=== PATIENT | male | born 1935 | race Caucasian/White ===

== ENCOUNTER → 2016-02-25 | Outpatient (CLI) | payer BC ==
[~2016-02-25] MED LIST: ASPCH81 PO; LOSA50TA6 PO; METO1TAB69 PO; MULT-506 PO; PRLSR20 PO; SIMV20TA2 PO
[2016-02-25 09:30] LABS: BASO % 0.6 %; BASO ABS # 0.03 K/uL (0-0.2); COMPLETE YES; EOS % 3.8 %; HEMATOCRIT 40.3 % (42-52); IG% 0.2 %; LYMPH % 29.5 %; LYMPH ABS # 1.56 K/uL (1.2-3.4); MEAN CELL VOLUME 84.7 fL (80-100); MEAN CORPUSCULAR HEMOGLOBIN 28.2 pg (25-34); MEAN CORPUSCULAR HGB CONC 33.3 g/dl (32-36); MEAN PLATELET VOLUME 10.3 fL (7.4-10.4); NEUT % 55.9 %; PLATELET COUNT 152 K/uL (130-400); RED BLOOD COUNT 4.76 M/uL (4.7-6.1); WHITE BLOOD COUNT 5.28 K/uL (4.8-10.8)
[2016-02-25 09:52] LABS: ALT/SGPT 18 U/L (12-78); AST/SGOT 17 U/L (15-37); BLOOD UREA NITROGEN 26 mg/dl (7-18); BUN/CREATININE RATIO 18.3 (10-20); CALCIUM 8.6 mg/dl (8.5-10.1); CARBON DIOXIDE 29 mmol/L (21-32); CHLORIDE 106 mmol/L (98-107); GLUCOSE 102 mg/dl (70-99); POTASSIUM 4.4 mmol/L (3.5-5.1); SODIUM 141 mmol/L (136-145); TRIGLYCERIDES 60 mg/dl (0-150); VERY LOW DENSITY LIPOPROT CALC 12 mg/dl
[2016-02-25 09:55] LABS: CHOLESTEROL 148 mg/dl (0-200); CHOLESTEROL/HDL RATIO 2.6; FERRITIN 90.3 ng/ml (8.0-388.0); HDL CHOLESTEROL 58 mg/dl; LDL CHOLESTEROL CALCULATED 78 mg/dl
== END | disposition home or self-care (01) ==
LOC: C.LAB1850 07:13
PROVIDERS: ATTEND Internal Medicine
DX: F52.8 Other sexual dysfunction not due to a substance or known physiological condition (principal); I10 Essential (primary) hypertension; I25.10 Atherosclerotic heart disease of native coronary artery without angina pectoris; Z12.5 Encounter for screening for malignant neoplasm of prostate; D64.9 Anemia, unspecified; E78.5 Hyperlipidemia, unspecified

== ENCOUNTER → 2017-02-23 | Outpatient (CLI) | payer BC ==
[~2017-02-23] MED LIST changes: +METO100T44 PO; -METO1TAB69 PO
[2017-02-23 09:58] LABS: BASO % 0.3 %; BASO ABS # 0.02 K/uL (0-0.2); EOS % 2.4 %; EOS ABS # 0.16 K/uL (0-0.5); HEMATOCRIT 40.7 % (42-52); HEMOGLOBIN 13.5 g/dL (14.0-18.0); IG# 0.02 K/uL (0.00-0.02); LYMPH % 27.3 %; LYMPH ABS # 1.79 K/uL (1.2-3.4); MEAN CELL VOLUME 84.6 fL (80-100); MEAN CORPUSCULAR HEMOGLOBIN 28.1 pg (25-34); MEAN CORPUSCULAR HGB CONC 33.2 g/dl (32-36); MEAN PLATELET VOLUME 10.5 fL (7.4-10.4); MONO % 10.5 %; MONO ABS # 0.69 K/uL (0.11-0.59); NEUT % 59.2 %; NEUT ABS # 3.87 K/uL (1.4-6.5); PLATELET COUNT 211 K/uL (130-400); RED CELL DISTRIBUTION WIDTH CV 12.8 % (11.5-14.5); RED CELL DISTRIBUTION WIDTH SD 38.9 fL (36.4-46.3); WHITE BLOOD COUNT 6.55 K/uL (4.8-10.8)
[2017-02-23 10:05] LABS: ALBUMIN 3.5 gm/dl (3.4-5.0); ALT/SGPT 20 U/L (12-78); AST/SGOT 19 U/L (15-37); BLOOD UREA NITROGEN 28 mg/dl (7-18); CALCIUM 8.7 mg/dl (8.5-10.1); CARBON DIOXIDE 29 mmol/L (21-32); CHOLESTEROL 133 mg/dl (0-200); CREATININE 1.48 mg/dl (0.60-1.40); GLUCOSE 95 mg/dl (70-99); POTASSIUM 4.4 mmol/L (3.5-5.1); SODIUM 139 mmol/L (136-145)
[2017-02-23 10:08] LABS: ALKALINE PHOSPHATASE 88 U/L (45-117); LDL CHOLESTEROL CALCULATED 69 mg/dl
== END | disposition home or self-care (01) ==
LOC: C.LAB1850 07:35
PROVIDERS: ATTEND Physician Assistant
DX: E78.5 Hyperlipidemia, unspecified (principal)

== ENCOUNTER 2024-04-07 17:22 | Inpatient (IN) ==
--- NOTE | 2024-04-07 18:25 | Emergency Department Note ---
Impression & Plan Acute dyspnea, Acute exacerbation of CHF (congestive heart failure), Non-ST elevation CT (NSTEMI), Elevated brain natriuretic peptide (BNP) level ED Provider Note HISTORY OF PRESENT ILLNESS: Patient is an 88-year-old male presenting with general malaise. Patient reports that he has been feeling generally unwell over the last few days. He states that he was diagnosed with recurrent pneumonia a few weeks ago and finished a course of antibiotics 1 week ago. He is complaining of fatigue and shortness of breath with exertion. He states that today he went to his weekly tennis game and was very short of breath, so he went to be evaluated by his doctor. He was sent over to the emergency department for further evaluation. He denies any fevers or cough. Denies any chest pain. Denies any nausea or vomiting or abdominal pain. Patient reports that he was prescribed steroids with his antibiotics, but he never took them. Patient denies any chest pain. Denies any history of cardiac stents. Denies any DVT or PE history. He is not on any anticoagulation other than a baby aspirin. ROS: as above PHYSICAL EXAM: Constitutional: Patient appears in no acute distress. HENT: Head: Normocephalic and atraumatic. Eyes: EOMI, PERRL Mouth/Throat: Mucous membranes moist. Neck: Trachea midline. Neck supple. Cardiovascular: Irregular rhythm. No murmurs, rubs or gallops. Intact distal pulses. Pulmonary/Chest: No respiratory distress. Breath sounds clear and equal bilaterally. No wheezes or rales. Abdominal: Abdomen soft, no tenderness, rebound or guarding. Musculoskeletal: No edema, tenderness or deformity noted. Skin: Warm and dry. No rash, erythema, pallor or cyanosis Psychiatric: Appropriate mood and affect for situation. Neurological: Alert and keenly responsive. CN II-XII grossly intact, moving all extremities equally and fully. MDM: - Vitals signs showed hypertension - History obtained via patient. History as above. - Chronic conditions affecting care: CAD; HTN - Differential diagnoses include, but are not limited to: Congestive heart failure; acute coronary syndrome; COPD/asthma exacerbation; pulmonary edema; pulmonary embolism; pneumonia; pneumothorax; viral syndrome - Order placed for continuous cardiac monitoring. At this time, monitor showed rate of 65 bpm with irregular rhythm, per my interpretation. - External medical records reviewed. Primary care visit note from today was reviewed. Patient was diagnosed with pneumonia on chest x-ray on 03/17/2024. He was treated with a course of amoxicillin and azithromycin that he finished last week. Per their documentation, he was ordered a chest x-ray and was going to be called with for the results. - EKG image interpreted by myself showed atrial fibrillation. Rate 80 bpm. QT 412. Noted to have a left bundle branch block, that has not appeared on previous EKGs - Laboratory workup interpreted by myself showed normal WBC; normal PT/INR; stable electrolytes; elevated creatinine (Cr 1.47); elevated troponin (45.4); elevated BNP (432) - VBG normal - Viral respiratory panel negative - CXR image reviewed by myself showed pulmonary vascular congestion, per my interpretation. Radiology on the ER chest x-ray reports superimposed pneumonia cannot be excluded. Patient's chest x-ray from earlier today showed CHF with left lower lobe pneumonia. - Given patient's normal WBC, do not think this is pneumonia that is noted. His symptoms are likely secondary to CHF exacerbation. Given patient's elevated creatinine, 20 mg of IV Lasix was ordered. - Repeat EKG image obtained at 20:05 and interpreted by myself showed atrial fibrillation. Rate 63 bpm. QT 438. Noted to have persistent left bundle branch block - Discussion was had with case maker about patient's case and need for admission - Hospitalist, Dr. Everett, consulted for admission - Patient admitted to [facility] service for further evaluation and management. 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 Acid reflux (Acute) Anemia (Acute) CAD (coronary artery disease) (Acute) Asymptomatic stenosis of right carotid artery (Acute) Dyslipidemia (Acute) Hypertension (Acute) Medical History Erectile dysfunction Insomnia SNHL (sensorineural hearing loss) Surgical History History of rotator cuff surgery History of knee replacement History of cataract surgery Left eye 03/08/2008; Dr Leandro Sorto History of appendectomy Family History Family/Other Diabetes Father Cardiac disorder Family history of deafness and hearing loss Myocardial infarction Denies family history of Ovarian cancer Prostate cancer Crohn's disease Breast cancer Colorectal cancer Social History Smoking Status: Never smoker Second Hand Exposure: No; Do You Dip or Chew Tobacco: No; Hx Alcohol Use: No (Special occassions) Hx Substance Use: No Preferred Language: Welsh Visual Impairment: No Limitations Hearing Ability: Use of Hearing Aid marital status: Current Living Situation: Spouse current occupational status: retired Feels Safe at Home: Yes Diet: regular Dental Care, Regularly: Yes Physical Activity Frequency: 3-4 Times per Week Seatbelt Use: always Sunscreen Use: Yes Allergies Allergies Allergy/AdvReac Type Severity Reaction Status Date / Time morphine Allergy Unknown UNSURE Verified 04/07/24 13:46 Home Meds Previous Rx's Medication Instructions Recorded atorvastatin 20 mg tablet 20 mg PO DAILY #90 tabs 07/22/23 aspirin 81 mg tablet,delayed 81 mg PO Q2D #45 tabs 12/22/23 release losartan 50 mg tablet 50 mg PO DAILY #30 tabs 04/05/24 Results & Data (ED) Vital Signs Vital Signs - 24 hr 04/07/24 17:34 04/07/24 18:02 04/07/24 18:30 Temperature 36.2 C L Temperature Source Temporal Artery Scan Pulse Rate 77 68 Pulse Rate [Finger] 64 Respiratory Rate 18 18 Respiratory Effort / Characteristics Non-Labored Respiratory Depth Normal Respiratory Pattern Regular Blood Pressure 181/96 H Blood Pressure [Right Arm] 162/96 H Blood Pressure Mean 124 Blood Pressure Mean [Right Arm] 118 Blood Pressure Position [Right Arm] Pulse Oximetry 97 96 Oxygen Delivery Method Room Air Room Air Sepsis Recent Fever Within 48 Hours No Sepsis New/Unexplained Change in Mental Status N/A Sepsis Action Taken by Nursing No Action Required 04/07/24 19:46 04/07/24 19:46 04/07/24 19:53 Temperature Temperature Source Pulse Rate Pulse Rate [Finger] 70 Respiratory Rate 20 Respiratory Effort / Characteristics Non-Labored Spontaneous Respiratory Depth Normal Respiratory Pattern Regular Blood Pressure Blood Pressure [Right Arm] 195/89 H Blood Pressure Mean Blood Pressure Mean [Right Arm] 124 Blood Pressure Position [Right Arm] Sitting Pulse Oximetry 98 98 Oxygen Delivery Method Room Air Room Air Sepsis Recent Fever Within 48 Hours Sepsis New/Unexplained Change in Mental Status Sepsis Action Taken by Nursing Laboratory Data 04/07/24 17:52 04/07/24 17:52 Lab Results 04/07/24 04/07/24 04/07/24 Range/Units 17:52 17:53 18:41 WBC 6.37 (4.8-10.8) K/ul RBC 4.46 L (4.70-6.10) M/uL Hgb 12.4 L (14.0-18.0) g/dl Hct 39.0 L (42.0-52.0) % MCV 87.4 (80.0-100.0) fL MCH 27.8 (25.0-34.0) pg MCHC 31.8 L (32.0-36.0) g/dL RDW Std Deviation 42.0 (36.4-46.3) fL RDW Coeff of Anuj 13.2 (11.5-14.5) % Plt Count 165 (130-400) K/uL MPV 10.8 (9.4-12.4) fL Immature Gran % (Auto) 0.3 % Neut % (Auto) 66.5 % Lymph % (Auto) 19.6 % [place] % (Auto) 9.9 % Eos % (Auto) 2.8 % Baso % (Auto) 0.9 % Neut # (Auto) 4.23 (1.40-6.50) K/uL Lymph # (Auto) 1.25 (1.20-3.40) K/uL [place] # (Auto) 0.63 H (0.11-0.59) K/uL Eos # (Auto) 0.18 (0.00-0.50) K/uL Baso # (Auto) 0.06 (0.00-0.20) K/uL Immature Gran # (Auto) 0.02 (0.01-0.20) K/uL PT 11.1 (9.0-12.0) Seconds INR 1.0 (0.9-1.1) VBG pH 7.36 (7.36-7.41) VBG pCO2 46 (38-50) mmHg VBG pO2 29 mmHg VBG HCO3 26 mmol/L VBG O2 Saturation < 60.0 % VBG Base Excess 0.1 mEq/L Sodium 140 (136-145) mmol/L Potassium 4.1 (3.5-5.1) mmol/L Chloride 108 H (98-107) mmol/L Carbon Dioxide 26 (21-32) mmol/L Anion Gap 6 (3-11) BUN 35 H (6-23) mg/dl Creatinine 1.47 H (0.6-1.4) mg/dl Est Cr Clr Drug Dosing 35.9 ml/min eGFR 45.59 BUN/Creatinine Ratio 23.8 H (10-20) Glucose 143 H (70-99(Fasting)) mg/dl Calcium 9.0 (8.6-10.3) mg/dl Magnesium 1.9 (1.7-2.4) mg/dl Total Bilirubin 0.6 (0.2-1.0) mg/dl AST 40 H (13-39) U/L ALT 26 (7-52) U/L Alkaline Phosphatase 103 (34-104) U/L Troponin I High Sens 45.5 H (0-20) pg/ml B-Natriuretic Peptide 432 H (0-100) pg/ml Total Protein 7.0 (6.0-8.3) gm/dl Albumin 4.2 (3.4-5.0) gm/dl Globulin 2.8 (2.5-4.0) gm/dl Albumin/Globulin Ratio 1.5 (0.9-2) Procalcitonin < 0.02 (0-0.5) ng/ml Adenovirus (PCR) Not Detected (NotDetected) B. pertussis DNA (PCR) Not Detected (NotDetected) B.parapertussis DNA PCR Not Detected (NotDetected) C. pneumoniae DNA (PCR) Not Detected (NotDetected) Coronavirus OC43 (PCR) Not Detected (NotDetected) Coronavirus HKU1 (PCR) Not Detected (NotDetected) Coronavirus 229E (PCR) Not Detected (NotDetected) SARS-CoV-2 (PCR) Not Detected (NotDetected) Coronavirus NL63 (PCR) Not Detected (NotDetected) Human Metapneumovir PCR Not Detected (NotDetected) Influenza Type A (PCR) Not Detected (NotDetected) Influenza Type B (PCR) Not Detected (NotDetected) M. pneumoniae (PCR) Not Detected (NotDetected) Parainfluenza 1 (PCR) Not Detected (NotDetected) Parainfluenza 2 (PCR) Not Detected (NotDetected) Parainfluenza 3 (PCR) Not Detected (NotDetected) Parainfluenza 4 (PCR) Not Detected (NotDetected) RSV (PCR) Not Detected (NotDetected) Entero/Rhino (PCR) Not Detected (NotDetected) Administered Medications Discontinued Medications Furosemide (Furosemide Inj 20 Mg/2 Ml Vial) 20 mg IV ONE ONE Stop: 04/07/24 19:31 Last Admin: 04/07/24 19:51 Dose: 20 mg Documented By: JR Imaging Data Radiologist's Impression: Chest X-Ray 04/07/24 17:45 EXAM: Portable AP chest radiograph TECHNIQUE: AP portable radiograph of the chest was obtained. INDICATION: Shortness of breath Comparison: None available. FINDINGS: LINES and TUBES: None CARDIOVASCULAR: Cardiac silhouette is enlarged in size. LUNGS/PLEURA: Mild to moderate pulmonary vascular congestion. Left basilar density obscuring the hemidiaphragm likely due to moderate-sized pleural fluid and associated atelectasis. Small right-sided pleural fluid is also suspected. Airspace disease is not excluded in the lung bases. No discernible pneumothorax. OSSEOUS/OTHER: No displaced acute osseous process identified. IMPRESSION: Congestive changes of the cardiovascular system as above. Superimposed airspace disease should be clinically excluded. Electronically signed by Patrick Madden 04-07-2024 6:28 PM Discharge Plan Visit Data Chief Complaint: Respiratory Problems Stated Complaint: DOC. MARICRUZ LORENZANA, [place] ED Provider: Jeni Bess Discharge Problem: Acute dyspnea, Acute exacerbation of CHF (congestive heart failure), Non-ST elevation CT (NSTEMI), Elevated brain natriuretic peptide (BNP) level Forms Stand Alone Forms: My [facility] Prescriptions Prescriptions: No Action atorvastatin 20 mg tablet 20 mg PO DAILY Qty: 90 3RF losartan 50 mg tablet 50 mg PO DAILY Qty: 30 1RF aspirin 81 mg tablet,delayed release (DR/EC) 81 mg PO Q2D Qty: 45 2RF Referrals Referrals: Giovany Negron MD [Primary Care Provider] -
--- NOTE | 2024-04-07 18:29 | XRay Report ---
EXAM: Portable AP chest radiograph TECHNIQUE: AP portable radiograph of the chest was obtained. INDICATION: Shortness of breath Comparison: None available. FINDINGS: LINES and TUBES: None CARDIOVASCULAR: Cardiac silhouette is enlarged in size. LUNGS/PLEURA: Mild to moderate pulmonary vascular congestion. Left basilar density obscuring the hemidiaphragm likely due to moderate-sized pleural fluid and associated atelectasis. Small right-sided pleural fluid is also suspected. Airspace disease is not excluded in the lung bases. No discernible pneumothorax. OSSEOUS/OTHER: No displaced acute osseous process identified. IMPRESSION: Congestive changes of the cardiovascular system as above. Superimposed airspace disease should be clinically excluded. Electronically signed by Patrick Madden 04-07-2024 6:28 PM
[2024-04-07 18:35] LABS: Basophils # (auto) 0.06 K/uL (0.00-0.20); Basophils % (auto) 0.9 %; Eosinophils # (auto) 0.18 K/uL (0.00-0.50); Eosinophils % (auto) 2.8 %; Hemoglobin 12.4 g/dl (14.0-18.0); Immature Granulocytes # (auto) 0.02 K/uL (0.01-0.20); Immature Granulocytes % (auto) 0.3 %; Lymphocytes # (auto) 1.25 K/uL (1.20-3.40); Lymphocytes % (auto) 19.6 %; Mean Corpuscular Hemoglobin 27.8 pg (25.0-34.0); Mean Corpuscular Hgb Conc 31.8 g/dL (32.0-36.0); Mean Corpuscular Volume 87.4 fL (80.0-100.0); Mean Platelet Volume 10.8 fL (9.4-12.4); Monocytes # (auto) 0.63 K/uL (0.11-0.59); Monocytes % (auto) 9.9 %; Neutrophils # (auto) 4.23 K/uL (1.40-6.50); Neutrophils % (auto) 66.5 %; Platelet Count 165 K/uL (130-400); RDW Coefficient of Variation 13.2 % (11.5-14.5); Red Blood Count 4.46 M/uL (4.70-6.10); White Blood Count 6.37 K/ul (4.8-10.8)
[2024-04-07 18:49] LABS: Albumin Globulin Ratio 1.5 (0.9-2); Albumin Level 4.2 gm/dl (3.4-5.0); BUN Creatinine Ratio 23.8 (10-20); Bilirubin,Total 0.6 mg/dl (0.2-1.0); Creatinine Clr Calc Pharmacy 35.9 ml/min; Globulin 2.8 gm/dl (2.5-4.0); Magnesium 1.9 mg/dl (1.7-2.4); Potassium 4.1 mmol/L (3.5-5.1)
[2024-04-07 18:52] LABS: Base Excess VBG 0.1 mEq/L; HCO3 VBG 26 mmol/L; Oxygen Saturation VBG < 60.0 %; PCO2 VBG 46 mmHg (38-50); PO2 VBG 29 mmHg; pH VBG 7.36 (7.36-7.41)
[2024-04-07 18:53] LABS: Troponin I High Sensitivity 45.5 pg/ml (0-20)
[2024-04-07 18:56] LABS: Prothrombin Time 11.1 Seconds (9.0-12.0)
[2024-04-07 19:02] LABS: Adenovirus PCR Not Detected (NotDetected); Bordetella parapertussis PCR Not Detected (NotDetected); Bordetella pertussis PCR Not Detected (NotDetected); Chlamydia pneumoniae PCR Not Detected (NotDetected); Coronavirus 229E PCR Not Detected (NotDetected); Coronavirus CoV-2 (COVID19)PCR Not Detected (NotDetected); Coronavirus HKU1 PCR Not Detected (NotDetected); Coronavirus NL63 PCR Not Detected (NotDetected); Coronavirus OC43PCR Not Detected (NotDetected); Human Metapneumovirus PCR Not Detected (NotDetected); Influenza A PCR Not Detected (NotDetected); Influenza B PCR Not Detected (NotDetected); Mycoplasma pneumoniae PCR Not Detected (NotDetected); Parainfluenza Virus 1 PCR Not Detected (NotDetected); Parainfluenza Virus 2 PCR Not Detected (NotDetected); Parainfluenza Virus 3 PCR Not Detected (NotDetected); Parainfluenza Virus 4 PCR Not Detected (NotDetected); Respiratory Syncytial VirusPCR Not Detected (NotDetected); Rhinovirus/Enterovirus PCR Not Detected (NotDetected)
--- NOTE | 2024-04-07 19:48 | History & Physical Report ---
Date of Service April 07, 2024 Assessment & Plan (1) Acute exacerbation of CHF (congestive heart failure): (2) Elevated troponin: (3) Acute kidney injury: Plan 88-year-old male PMHx CAD, dyslipidemia, HTN, CKD stage III, , anemia and GERD presenting after being diagnosed with pneumonia few weeks ago and completing a 5-day course of antibiotics complaining of ongoing SOB. ED evaluation reveals no leukocytosis, H&H 12.4/39, VBG's WNL, chloride 108, creatinine 1.47, BUN 35, ra rickie 23.8, AST 40, initial troponin 45.5, pending repeat, BNP 432, procalcitonin less than 0.02. BioFire negative. Outpatient CXR revealing CHF with LLL pneumonia and CXR completed in ED with congestive changes and superimposed airspace disease of left lobe. EKG reveals A-fib with LAD and LBBB at a rate of 80 bpm. Patient was provided with furosemide 20 mg IV x 1 in ED. #Acute CHF/Elevated troponin//CAD No documented history of CHF; presenting with SOB with exertion as well as feeling "heaviness in chest" when laying flat at night, finding it more difficult to breath. Recently treated for PNA with outpatient course of abx, completed. CXR revealing some evidence of CHF and w/ elevated BNP (432). Of note, initial EKG read as Afib rate controlled, but telemetry without supportive findings of such. Pending repeat EKG. Last seen by cardiology 12/21/2023. No SOB at time of evaluation; No O2 at baseline. - Current weight 77kg, does not feel as though his weight is up from baseline; D aily weights standing; I+Os - Echo EF 60 to 65%, concentric LVH, moderate valvular , mild AR, mild to moderate MR, RVSP 34 mmHg; pending echo - BNP 432; Troponin 45.5, pending repeat; TSH pending; EKG ? a.fib, rate controlled and without evidence of ischemia- demand related - CBC w/o leukocytosis, procal WNL; CXR in hospital w/ congestive changes and superimposed airspace disease of left lobe - Lasix 20mg IV given in ED, not grossly fluid overloaded at admission; Consider additional dose of 20mg Lasix dependent on Cr; will adjust dose as appropriate - caution with excessive diuresis given MED - Promote leg elevation and frequent movement #MED/CKD stage III Likely secondary to renal hypoperfusion; H/o CKD stage III per records. Cr baseline actually appears to be in 1.3-1.4 range. - Cr 1.47, BUN 35; UA pending- BMP am - No fluids given in ED 03/20 ? fluid overload in lungs; allow for fluid intake and caution w/ balance between diuresis and renal perfusion - Post void bladder scan pending; bladder scan prn #Dyslipidemia- Atorvastatin #HTN- Losartan Dispo: Admit, med/tele - ? afib VTE prophylaxis: Heparin This document was dictated utilizing [employer]. Please excuse any grammatical errors that may be secondary to use of this software. Admission and Anticipated Discharge Date Admission Date: 04/07/2024 History of Present Illness Chief Complaint: SOB Primary Care Provider: Giovany Negron MD 88-year-old male PMHx CAD, dyslipidemia, HTN, CKD stage III, , anemia and GERD presenting after being diagnosed with pneumonia few weeks ago and completing a 5-day course of antibiotics. Complaining of fatigue and SOB with exertion. Was seen by PCP on the day of arrival and informed to go to ED for ongoing symptoms as well as CXR revealing continuous PNA. Patient was evaluated at PCP office after being treated with amoxicillin and azithromycin as outpatient following diagnosis of PNA via chest x-ray on 03/17/2024. He was also prescribed a dose of steroids but did not complete this. Reports that he has been feeling "unwell" over the last few days. He was at his weekly tennis game and became very short of breath with exertion which was abnormal for him. Reports that he does feel that he is more short of breath when he is laying down at night and the symptoms are resolved when he sits upright. Denying chest pain, palpitations, abdominal pain, N/V/D/C, numbness/tingling, LUTS, fever/chills, or edema. Takes his medications as prescribed, not on diuresis. ED evaluation reveals no leukocytosis, H&H 12.4/39, VBG's WNL, chloride 108, creatinine 1.47, BUN 35, ratio 23.8, AST 40, initial troponin 45.5, pending repeat, BNP 432, procalcitonin less than 0.02. BioFire negative. Outpatient CXR revealing CHF with LLL pneumonia and CXR completed in ED with congestive changes and superimposed airspace disease of left lobe. EKG reveals A-fib with LAD and LBBB at a rate of 80 bpm. Patient was provided with furosemide 20 mg IV x [address] see Dr[address] Everett's attestation for adjustments/additions to treatment plan. Allergies Allergy/AdvReac Type Severity Reaction Status Date / Time morphine Allergy Unknown UNSURE Verified 04/07/24 13:46 Home Medications Medication Instructions Recorded Confirmed Type atorvastatin 20 mg tablet 20 mg PO DAILY #90 tabs 07/22/23 04/07/24 Rx aspirin 81 mg tablet,delayed 81 mg PO Q2D #45 tabs 12/22/23 04/07/24 Rx release losartan 50 mg tablet 50 mg PO DAILY #30 tabs 04/05/24 04/07/24 Rx Past Med/Surg History Problem List Elevated troponin Acute kidney injury Elevated brain natriuretic peptide (BNP) level (Acute) Non-ST elevation SC (NSTEMI) (Acute) Acute exacerbation of CHF (congestive heart failure) (Acute) Acute dyspnea (Acute) Current use of proton pump inhibitor Moderate aortic stenosis CKD (chronic kidney disease) stage 3, GFR 30-59 ml/min 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 Acid reflux (Acute) Anemia (Acute) CAD (coronary artery disease) (Acute) Asymptomatic stenosis of right carotid artery (Acute) Dyslipidemia (Acute) Hypertension (Acute) Medical History Erectile dysfunction Insomnia SNHL (sensorineural hearing loss) Surgical History History of rotator cuff surgery History of knee replacement History of cataract surgery Left eye 03/08/2008; Dr Leandro Sorto History of appendectomy Family History Family/Other Diabetes Father Cardiac disorder Family history of deafness and hearing loss Myocardial infarction Denies family history of Ovarian cancer Prostate cancer Crohn's disease Breast cancer Colorectal cancer Social History (Reviewed 04/08/24 @ 00:16 by REINA Sue Smoking Status: Never smoker Second Hand Exposure: No; Do You Dip or Chew Tobacco: No; Hx Alcohol Use: Yes Alcohol Intake Frequency: Monthly or Less Hx Substance Use: No Preferred Language: Korean Communication Ability: Effective Visual Impairment: No Limitations Hearing Ability: Use of Hearing Aid Blind Cleaner Required: No Beliefs That Will Affect Care: None marital status: Current Living Situation: Alone current occupational status: retired Other Information That Helps Us Care for You: No Feels Safe at Home: Yes Safety Concerns: Feels Safe At This Time Diet: regular Dental Care, Regularly: Yes Physical Activity Frequency: 3-4 Times per Week Seatbelt Use: always Sunscreen Use: Yes Assistive Devices: Hearing Aid - Bilateral Review of Systems Review of Systems: All systems reviewed & are unremarkable except as noted in Subjective Physical Exam Physical Exam: General: No acute distress Skin: Warm and dry Head: Normocephalic, atraumatic Eyes: PERRL, conjunctivae clear, sclera non-icteric ENT: External ear and ear canal without swelling, wearing hearing aids bilaterally; nose atraumatic; good dentition, tongue normal appearance, pharynx normal Neck: Supple, no LAD Cardio: RRR, no M/G/R, S1 and S2 normal Resp: No respiratory distress, mild expiratory wheezing in RLL but otherwise lungs CTA in all additional lobes without wheezes, rales, or rhonchi Abdomen: Soft, symmetric, nontender; No masses or hepatosplenomegaly; Bowel sounds normoactive MSK: No deformities, full ROM throughout; pulses palpable and equal; no edema; L pinky toe callus forming, covered with Band-Aid Neuro: Awake, alert; CN grossly intact Psych: Appropriate mood and affect; good judgement and insight. Results & Data Results & Data Vital Signs (Past 12 Hours) Vital Signs Temp Pulse Pulse Resp BP BP Pulse Ox 04/07/24 18:30 64 18 162/96 H 96 04/07/24 18:02 68 04/07/24 17:34 36.2 C L 77 18 181/96 H 97 O2 Del Method 04/07/24 18:30 Room Air 04/07/24 18:02 04/07/24 17:34 Room Air Laboratory Results 04/07/24 04/07/24 04/07/24 18:41 17:53 17:52 WBC 6.37 RBC 4.46 L Hgb 12.4 L Hct 39.0 L MCV 87.4 MCH 27.8 MCHC 31.8 L RDW Std Deviation 42.0 RDW Coeff of Anuj 13.2 Plt Count 165 MPV 10.8 Immature Gran % (Auto) 0.3 Neut % (Auto) 66.5 Lymph % (Auto) 19.6 [place] % (Auto) 9.9 Eos % (Auto) 2.8 Baso % (Auto) 0.9 Neut # (Auto) 4.23 Lymph # (Auto) 1.25 [place] # (Auto) 0.63 H Eos # (Auto) 0.18 Baso # (Auto) 0.06 Immature Gran # (Auto) 0.02 PT 11.1 INR 1.0 VBG pH 7.36 VBG pCO2 46 VBG pO2 29 VBG HCO3 26 VBG O2 Saturation < 60.0 VBG Base Excess 0.1 Sodium 140 Potassium 4.1 Chloride 108 H Carbon Dioxide 26 Anion Gap 6 BUN 35 H Creatinine 1.47 H Est Cr Clr Drug Dosing 35.9 eGFR 45.59 BUN/Creatinine Ratio 23.8 H Glucose 143 H Calcium 9.0 Magnesium 1.9 Total Bilirubin 0.6 AST 40 H ALT 26 Alkaline Phosphatase 103 Troponin I High Sens 45.5 H Total Protein 7.0 Albumin 4.2 Globulin 2.8 Albumin/Globulin Ratio 1.5 Procalcitonin < 0.02 Adenovirus (PCR) Not Detected B. pertussis DNA (PCR) Not Detected B.parapertussis DNA PCR Not Detected C. pneumoniae DNA (PCR) Not Detected Coronavirus OC43 (PCR) Not Detected Coronavirus HKU1 (PCR) Not Detected Coronavirus 229E (PCR) Not Detected SARS-CoV-2 (PCR) Not Detected Coronavirus NL63 (PCR) Not Detected Human Metapneumovir PCR Not Detected Influenza Type A (PCR) Not Detected Influenza Type B (PCR) Not Detected M. pneumoniae (PCR) Not Detected Parainfluenza 1 (PCR) Not Detected Parainfluenza 2 (PCR) Not Detected Parainfluenza 3 (PCR) Not Detected Parainfluenza 4 (PCR) Not Detected RSV (PCR) Not Detected Entero/Rhino (PCR) Not Detected Diagnostic Findings Chest X-Ray 04/07/24 17:45 EXAM: Portable AP chest radiograph TECHNIQUE: AP portable radiograph of the chest was obtained. INDICATION: Shortness of breath Comparison: None available. FINDINGS: LINES and TUBES: None CARDIOVASCULAR: Cardiac silhouette is enlarged in size. LUNGS/PLEURA: Mild to moderate pulmonary vascular congestion. Left basilar density obscuring the hemidiaphragm likely due to moderate-sized pleural fluid and associated atelectasis. Small right-sided pleural fluid is also suspected. Airspace disease is not excluded in the lung bases. No discernible pneumothorax. OSSEOUS/OTHER: No displaced acute osseous process identified. IMPRESSION: Congestive changes of the cardiovascular system as above. Superimposed airspace disease should be clinically excluded. Electronically signed by Patrick Madden 04-07-2024 6:28 PM Medications Administered Furosemide 20mg IV x 1 ECG Additional Comments: A-fib, LAD, LBBB 80 bpm, QRS 154, QT/QTc 412/475, PRT */-38/137 Code Status & VTE Plan Code Status Full Supervising Physician Co-Signing Physician Notes Patient seen and examined, chart reviewed, case discussed with NELI Rebollar and I agree with the assessment and plan as above. In brief, patient is an 88yo male recently treated for PNA presenting with ongoing SOB. On exam he is afebrile, HD stable Skin - no rash HEENT- MMM, no JVD Heart - +S1/S2, regular, 4/6 JUVENAL across precordium and to bilateral carotids Lungs - Mild bibasilar crackles, no rhonchi/wheezes Abd - soft, NT/ND Ext - no edema Labs and images reviewed Assessment/Plan - suspect mild volume overload contributing to patient's SOB Lasix 20mg IV given in ER - patient reports he has urinated a considerable amount with this already. Will redose in AM if needed pending on clinical status and lab values Do not suspect ongoing infection given normal labs and lack of fever Remainder as above PG Care Time/CCT Total # of Minutes Spent Total Time Spent with Patient: Total time spent is greater than 50% in coordination of care (as documented) at patient's floor/unit and/or counseling patient: Coding Level of Care Code 30838 INT INP/OBS CARE 3/75MIN Diagnoses Acute exacerbation of CHF (congestive heart failure) I50.9 Elevated troponin R79.89 Acute kidney injury N17.9
[2024-04-07] MEDS: FUROSEMIDE INJ 20 MG/2 ML VIAL IV ONE (19:51)
[2024-04-08] MEDS: HEPARIN SOD 5,000 UNIT/0.5 ML VIAL SQ SCH (01:09)
[2024-04-08 02:16] LABS: BUN Creatinine Ratio 21.3 (10-20); Creatinine Clr Calc Pharmacy 35.1 ml/min; Potassium 4.4 mmol/L (3.5-5.1)
[2024-04-08 02:30] LABS: Thyroid Stimulating Hormone 1.722 uIu/ml (0.300-4.500)
[2024-04-08 08:42] VITALS: TEMP 98.2
[2024-04-08] MEDS: ATORVASTATIN 20 MG TAB PO SCH (09:15)
[2024-04-08] MEDS: ASPIRIN 81 MG ECTAB PO SCH (09:15)
[2024-04-08] MEDS: LOSARTAN POTASSIUM 50 MG TAB PO SCH (09:15)
--- NOTE | 2024-04-08 10:40 | XCELERA ---
[id number] [id number]
[2024-04-08] MEDS: FUROSEMIDE 40 MG/4 ML VIAL IV ONE (10:48)
[2024-04-08 11:51] LABS: Appearance Urine Clear (Clear); Bilirubin Urine Negative (Negative); Blood Urine Negative (Negative); Color Urine Yellow; Glucose Urine UA Negative (Negative); Ketones Urine Negative (Negative); Leukocyte Esterase Urine Negative (Negative); Nitrite Urine Negative (Negative); Protein Urine Negative (Negative); Specific Gravity Urine 1.011 (1.000-1.030); Urobilinogen Urine Negative (Negative); pH Urine 6.5 (4.5-7.5)
--- NOTE | 2024-04-08 12:38 | Electrocardiogram Report ---
Test Reason : Blood Pressure : */* mmHG Vent. Rate : 63 BPM Atrial Rate : * BPM P-R Int : * ms QRS Dur : 154 ms QT Int : 438 ms P-R-T Axes : * -30 131 degrees QTcB Int : 448 ms Sinus rhythm with 1st degree AV block and PACs Left axis deviation Left bundle branch block Abnormal ECG Confirmed by Christiano Moran ([id number]) on 04/08/2024 12:38:12 PM Referred By: Giovany Negron Confirmed By: Christiano Moran
--- NOTE | 2024-04-08 12:54 | Electrocardiogram Report ---
Test Reason : Blood Pressure : */* mmHG Vent. Rate : 80 BPM Atrial Rate : * BPM P-R Int : * ms QRS Dur : 154 ms QT Int : 412 ms P-R-T Axes : * -38 137 degrees QTcB Int : 475 ms Sinus rhythm with 1st degree AV block and occasioanl PACs Left axis deviation Left bundle branch block Abnormal ECG When compared with ECG of 15-Jun-2021 11:16, Left bundle branch block is now Present Confirmed by Christiano Moran ([id number] on 04/08/2024 12:54:36 PM Referred By: Giovany Negron Confirmed By: Christiano Moran
[2024-04-08 13:02] VITALS: BP 175/86; RESP 24; O2SAT 95
[2024-04-08 14:00] VITALS: PULSE 58
--- NOTE | 2024-04-08 19:43 | Discharge Summary ---
Discharge Summary Date of Service April 08, 2024 Principal Dx & Hospital Course #1 = Principal Diagnosis (1) Acute exacerbation of CHF (congestive heart failure): (2) Elevated troponin: (3) Moderate aortic stenosis: (4) CKD (chronic kidney disease) stage 3, GFR 30-59 ml/min: (5) Hypertension: Plan 88-year-old man with presumed CAD, moderate aortic stenosis hypertension and CKD stage 3 admitted with acute diastolic heart failure. He had been diagnosed with pneumonia a month ago and completed a course of antibiotics but had no improvement and ongoing dyspnea on exertion and some orthopnea. There was no evidence of pneumonia on admission - CXR with pulmonary congestion, moderate left pleural effusion and atelectasis and mild right pleural effusion, no leukocytosis and procalcitonin negative. His EKG was machine read as afib but by my interpretation of the EKGs he does have p-waves and business mgr interpretation was LBBB and sinus with pac's and 1st degree AVB. The LBBB is new since last EKG a year ago. He has not been having chest pain, only BRASHER and has been regularly playing tennis including yesterday. HS-troponin was minimally elevated with a flat/down trend in 40s. BNP was 432. He did not have much peripheral edema, if any. His symptoms of dyspnea resolved with 20mg, then 40 mg IV lasix. He feels great today. He has CKD-3 and Cr was stable overnight at 1.5 with stable electrolytes. TTE notable for relative decrease in EF since last study from 60- 65% a year ago, now low normal at 50-55%. Moderate and moderate TR. Volume status was normal by the time the TTE was obtained. He was significantly hypertensive throughout the ED course. I discussed his care with his business mgr Dr. Luna. He could have underlying CAD and may need ischemic evaluation based on response to treatment. Better BP control will be helpful. He is very eager to go home and is stable to discharge home with outpatient follow up, continuation of statin, ASA qod, losartan. Added low dose of carvedilol - may not tolerate increase because of bradycardia. Added lasix 20 mg 2x a week and as needed with potassium. Made referral to CHF clinic. I discussed plan of care with his daughter at bedside Other issues: I think the bilateral pleural effusions are related to heart failure - assess response to medication adjustments. Further evaluation with thoracentesis if not improved or thought to be symptomatic. CKD stage 3b - Cr is unchanged since 2023. I do not think he has an MED. Continue ARB. Caution with potassium replacement and spironolactone if indicated. Myocardial demand ischemia - mild elevation of HD troponin, downtrending, no evidence of ACS. Presumed to have underlying CAD. Notes For Next Care Provider BMP on follow up, adjust diuretics Monitor pleural effusions Consider nephrology referral, per patient preference Medication Changes From Visit Added furosemide low dose, low dose potassium, carvedilol 3.125 mg bid Admission HPI Per Admitting Provider 88-year-old male PMHx CAD, dyslipidemia, HTN, CKD stage III, , anemia and GERD presenting after being diagnosed with pneumonia few weeks ago and completing a 5-day course of antibiotics. Complaining of fatigue and SOB with exertion. Was seen by PCP on the day of arrival and informed to go to ED for ongoing symptoms as well as CXR revealing continuous PNA. Patient was evaluated at PCP office after being treated with amoxicillin and azithromycin as outpatient following diagnosis of PNA via chest x-ray on 03/17/2024. He was also prescribed a dose of steroids but did not complete this. Reports that he has been feeling "unwell" over the last few days. He was at his weekly tennis game and became very short of breath with exertion which was abnormal for him. Reports that he does feel that he is more short of breath when he is laying down at night and the symptoms are resolved when he sits upright. Denying chest pain, palpitations, abdominal pain, N/V/D/C, numbness/tingling, LUTS, fever/chills, or edema. Takes his m edications as prescribed, not on diuresis. ED evaluation reveals no leukocytosis, H&H 12.4/39, VBG's WNL, chloride 108, creatinine 1.47, BUN 35, ratio 23.8, AST 40, initial troponin 45.5, pending repeat, BNP 432, procalcitonin less than 0.02. BioFire negative. Outpatient CXR revealing CHF with LLL pneumonia and CXR completed in ED with congestive changes and superimposed airspace disease of left lobe. EKG reveals A-fib with LAD and LBBB at a rate of 80 bpm. Patient was provided with furosemide 20 mg IV x [address] see Dr[address] Everett's attestation for adjustments/additions to treatment plan. Discharge Exam PHYSICAL EXAMINATION Last 24h vital signs reviewed, see documentation in flowsheet General: comfortable appearing, no distress, very robust 88-year-old dressed in street clothes and walking around in the room HEENT: Normocephalic, atraumatic, pupils round and equal, sclerae anicteric, no conjunctival injection, moist mucus membranes Lungs: Normal respiratory effort. Clear to auscultation bilaterally diminished right base Heart: Regular rate and rhythm, systolic murmur. EJ's visible standing upright no apparent JVD Abdomen: Soft, nontender, nondistended. Bowel sounds present. Extremities: Warm, dry, well-perfused. No extremity edema. Neuro: Alert and oriented x 4, face symmetric, moves 4 extremities well Psych: Normal affect and behavior Discharge Plan Discharge Items Patient Disposition: Home - Self-Care Reason For Visit: CHF Discharge Diagnosis: Acute diastolic heart failure, moderate aortic stenosis, CKD-3 Activity: Resume your previous activity Non-emergency contact: Primary Care Provider and Telephone Solicitor Call non-emergency contact if: you have any medication questions and your symptoms worsen Follow-up/Referrals: Teo Luna MD [Physician] - Pro,Giovany Almeida MD [Primary Care Provider] - Mckenna Massey PA-C [Physician Zoogler] - 04/15/24 12:30 pm Diet: Low Sodium (2gm) Addtl Attending Provider Instructions: Mr Alvarez, You were treated for mild heart failure - that's fluid buildup on your lungs that's related to cardiac dysfunction. This can be controlled with bringing your blood pressure down, certain medications that help your heart (carvedilol, losartan), and some diuretic (lasix) to prevent fluid retention. I talked to Dr. Luna and he'll see you in the office to evaluate response to meds and see if you need any more testing I also made referral to CHF clinic - the PA can see you sooner and check on your medication dosing Weigh yourself every morning. Take an extra dose of lasix (furosemide) if you gain 3 pounds or more in 1-2 days, 5 pounds or more in a week, or if you have increased shortness of breath. Take a dose of potassium with the lasix. It was a pleasure taking care of you in the hospital, Sri Jimenez MD Addtl Creping Machine Operator Helper Provider Instructions: Call your Primary Care doctor if any of the following symptoms or problems start or get worse: * Shortness of breath or difficulty breathing * Wake up at night short of breath * Chest pain * Cough * Swelling of your hands, feet, or legs * More fatigued or tired with your normal activity * Palpitations - sudden fast heart beats WEIGHT * Weigh yourself every morning after using the bathroom. * Use the same scale. * Wear the same amount of clothing. * Write your weight down on a chart. * Call your Primary Care doctor if you gain more than 2-3 pounds in 1-2 days. MEDICATIONS * Use this discharge instruction sheet for medication instructions. * Take your medications at the time your doctor ordered. * Do not skip a dose of your medicines. * If you miss a dose of medicine, take it as soon as possible, but DO NOT DOUBLE A DOSE. * Read your medicine information when you get home. * Know all of the side effects of your medicine. If in doubt, ask your pharmacist * Call your Primary Care doctor's office if you have any side effects. * Be sure all of your doctors know what medicine and herbs you take (including cold, flu, and herbal medicine). Take the following with you to your follow-up doctor appointments: * Weight Chart * Medication List * List of questions Do not drink excessive alcohol, beer or wine. Pending Studies at Discharge: No Stand-Alone Forms: My MIGSIF, Smoking Cessation Medications and DC Order Prescriptions: New carvedilol 3.125 mg tablet 3.125 mg PO BID Qty: 60 0RF Rx Instructions: must administer with a meal/food furosemide 20 mg tablet See Rx Instructions .ROUTE .COMPLEX PRN (Reason: edema) Qty: 30 0RF Rx Instructions: take two times a week and as needed for weight gain or increased shortness of breath. take with potassium potassium chloride 10 mEq tablet extended release 10 meq PO DAILY PRN (Reason: take with lasix (furosemide)) Qty: 30 0RF Continued atorvastatin 20 mg tablet 20 mg PO DAILY Qty: 90 3RF losartan 50 mg tablet 50 mg PO DAILY Qty: 30 1RF aspirin 81 mg tablet,delayed release (DR/EC) 81 mg PO Q2D Qty: 45 2RF Discharge Orders: Discharge Order- CHF (Routine); Ordered 04/08/24 Ordered By: Sri Jimenez Admission Data Admit Date/Time: 04/07/24 20:09 Attending Provider: Sri Jimenez Admit Provider: Latonia Everett Primary Care Provider: Giovany Negron Other Providers: Latonia Everett; Mckenna Massey Other Interventions: Discharge Summary Assessment (RN) Last Done: 04/08/24 13:58 Hospital Stay Data Consultations 04/07/24 19:34 ED Decision to Admit Stat 04/08/24 12:28 [facility] CHF Program Referral Routine Pending Results Patient Have Any Pending Studies at Discharge: No Discharge Instructions Given to Patient (Per Discharging Provider) Mr Alvarez, You were treated for mild heart failure - that's fluid buildup on your lungs that's related to cardiac dysfunction. This can be controlled with bringing your blood pressure down, certain medications that help your heart (carvedilol, losartan), and some diuretic (lasix) to prevent fluid retention. I talked to Dr. Luna and he'll see you in the office to evaluate response to meds and see if you need any more testing I also made referral to CHF clinic - the PA can see you sooner and check on your medication dosing Weigh yourself every morning. Take an extra dose of lasix (furosemide) if you gain 3 pounds or more in 1-2 days, 5 pounds or more in a week, or if you have increased shortness of breath. Take a dose of potassium with the lasix. It was a pleasure taking care of you in the hospital, Sri Jimenez MD Total Time Total Time Spent Total Time Spent (In Minutes): I personally spent: 40 minutes today on clinical care activities including: reviewing chart notes and vital signs reviewing labs reviewing studies discussion with his business mgr examining and counseling the patient counseling the patient's family writing orders, prescriptions, discharge instructions documentation Coding Level of Care Code 76225 INP/OBS DISCH >30 MIN Diagnoses Acute exacerbation of CHF (congestive heart failure) I50.9 Elevated troponin R79.89 Moderate aortic stenosis I35.0 CKD (chronic kidney disease) stage 3, GFR 30-59 ml/min N18.30 Hypertension I10
== END 2024-04-08 13:58 | disposition home or self-care (01) | DRG 291 ==
LOC: ED 17:22 → EDINP 20:09 → SUATTDRO 20:09 → EDINP 22:10

== ENCOUNTER 2025-01-04 08:11 | Observation (INO) ==
--- NOTE | 2025-01-04 08:49 | History & Physical Bridge Note ---
Date of Service January 04, 2025 History & Physical Bridge Note I have examined the patient, reviewed the History & Physical and in the interval since the performance of the History & Physical I have noted the following changes of clinical significance: no changes noted
--- NOTE | 2025-01-04 09:12 | Pre Anesthesia Assessment ---
Date of Service January 04, 2025 Pre Sedation Assessment Vital Signs Pulse Resp BP Pulse Ox O2 Del Method 01/04/25 08:25 75 14 200/99 H 93 Room Air Cardiovascular + regular rate + murmur Respiratory normal respiratory effort, lungs clear to auscultation Pre-Sedation Airway Assessment Smoking Status: Never smoker Hx Sleep Apnea: No Short, Thick Neck: No Thyromental Distance: > or= 3.5 Finger Breadths Oral Cavity: + WNL Mallampati Class: III ASA: ASA3 NPO Status Date of Last Intake of Fluids: 01/03/25 Time of Last Intake of Fluids: 18:00 Date of Last Intake of Solid Food: 01/03/25 Time of Last Intake of Solid Foods: 17:00 Procedure Planning Contraindications for Sedation: none Current Medications Reviewed: Yes Notes The planned sedation has been discussed with the patient. Informed Consent was obtained. I have identified the patient, determined the appropriateness of sedation and have assessed the patient immediately prior to the procedure. All medicine(s) and interventions are by my order.
[2025-01-04] MEDS: ASPIRIN 81 MG CHEW ONE (09:33)
[2025-01-04] MEDS: niCARdipine 2,000 MCG/20 ML SYR ONE (09:33)
--- NOTE | 2025-01-04 10:26 | Cardiac Catheterization ---
[facility] Data: Fairing Man Cardiac Status Clinical evaluation leading to the procedure CAD Presenation: Stable angina (Dyspnea on exertion, possible angina equivalent) Anginal Classification: CCS III Heart Failure: No Cardiogenic Shock within 24 Hours: No Cardiac Arrest within 24 Hours: No Imaging Studies Past 6 Months: Yes Stress Studies Past 6 Months: No Coronary Anatomy Dominant: Right Diagnostic Physicians Name: Bony Hunt MD Status: Elective Closure Device Percutaneous Entry Location: Radial Closure Device: Radial Band (after interventional cardiology procedure) Recommendations: Management Recommendatons Cardiac Cath Procedure Full Procedure Date January 04, 2025 Pre-Procedure Diagnosis Pre-Procedure Diagnosis: Valvular Disease and Cardiothoracic Symptom (new/worse dyspnea on exertion) AUC Score AUC Score: 7 Post-Procedure Diagnosis Post-Procedure Diagnosis: Severe CAD Procedure(s) Performed Procedure(s) Performed: Coronary Angiography Home Care Liaison Bony Hunt MD Stiff Leg Derrick Operator(s) Mckenna Estimated Blood Loss Estimated Blood Loss: < 20 ml Medication(s) Medication(s): Fentanyl, Heparin, Lidocaine 1%, Nicardipine and Versed Summary of Findings Procedures: 1. Coronary angiography 2. 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 He has noted dyspnea on exertion over the past few weeks with his usual activities, affecting his quality of life. He wanted to pursue invasive measures to improve his quality of life. Coronary angiography: 1. Left main: Short vessel. No significant CAD. 2. Left anterior descending: Proximal luminal irregularities. Mid LAD 50-70%. Large D1 with ostial/proximal 70-80%. Medium caliber D2. PRAMOD-3 flow. 3. Circumflex: Large-caliber vessel proximally. Mid to distal AV groove circumflex small caliber. Large OM1 with large lateral branch. OM1 mild CAD mid vessel. 4. Right coronary artery: RCA is large and dominant. Proximal RCA 30%. Early mid RCA 50%. Diffuse mild CAD 20-30% throughout the mid to distal RCA. PDA and PLB without significant CAD. Moderate sedation: 1. Sedation start time: 9:42 AM 2. Sedation end time: 9:58 AM Procedural Notes: 1. Coronary angiography was performed via the right radial artery without known complication with 6 Ni[place]an diagnostic JL 3.5 and JR4 catheters. 2. There was no attempt to cross previously documented stenotic aortic valve. Impression: 1. Moderate to severe mid LAD CAD and severe CAD involving ostial/proximal large D1. 2. Moderate RCA CAD and otherwise mild nonobstructive CAD. Plan: 1. Dr. Self of interventional cardiology was asked to further investigate mid LAD to determine severity and treatment options. 2. Risk factor modification. 3. Findings discussed with patient's friend, Judson Forrest, and his daughter, Jaylene (conversation with her via speaker phone). His daughter stated that if PCI could be performed, she was agreeable to proceed with PCI today. Hemodynamics Rest Ao:: 151/52 Final Ao: 152/55 LV: n/a Recommendations Recommendations: Management Recommendatons Specimens Specimens: None Radiation Exposure (mGy) 638 mGy. Fluoro time 2.6 min. Contrast (mls) 70 ml Procedural Complication(s) None Disposition remains in laboratory cureman for interventional cardiology. I attest to the content of the Intraoperative Record and any orders documented therein. Any exceptions are noted below. [facility] Card Cath Procedure Codes Cardiac Catheterization Procedure 1: Cardiovascular Cath Procedures: 21528 Coronaries Moderate Sedation Procedure 1: Sedation/Anesthesia: 85164 Mod Sedation by the same physician;Init15 Min Child Age 5 & Up Procedure 2: Sedation/Anesthesia: 92390 Mod Sedation by the same physician; Ea [id number] Minutes PG Care Time/CCT Total # of Minutes Spent Total Time Spent with Patient: Total time spent is greater than 50% in coordination of care (as documented) at patient's floor/unit and/or counseling patient:
[2025-01-04] MEDS: NITROGLYCERIN/D5W 100MCG/ML 20ML SYR ONE (10:35)
[2025-01-04] MEDS: diphenhydrAMINE 50 MG/ML VIAL ONE (11:26)
[2025-01-04] MEDS: HEPARIN (PORCINE) 1000 UNIT/ML 10 ML (CATH LAB USE ONLY) ONE (11:26)
[2025-01-04] MEDS: CLOPIDOGREL BISULFATE 300 MG TAB ONE (11:49)
[2025-01-04] MEDS: MIDAZOLAM HCL 1 MG/ML 2ML VIAL ONE ×2 (11:49)
[2025-01-04] MEDS: IODIXANOL (VISIPAQUE) 320 MG/ML 100ML IV ONE (11:50)
--- NOTE | 2025-01-04 12:09 | Post Anesthesia Assessment ---
Date of Service January 04, 2025 Post Sedation Assessment Vital Signs Pulse Resp BP Pulse Ox O2 Del Method 01/04/25 08:25 75 14 200/99 H 93 Room Air Recovery Score Activity: Moves 4 extremities Respiration: Deep Breath/Cough Circulation: +/-20% PreAnes Value Consciousness: Fully Awake Oxygen Saturation: O2 needed for >90% Discharge Sedation Level of Care: Fast Track Phase II
[2025-01-04] MEDS ORDERED: ONDANSETRON INJ 2 MG/ML 2 ML VIAL IV PRN (12:10)
[2025-01-04] MEDS ORDERED: ALUMINUM/MAGNESIUM SUSP 30 ML UDC PO PRN (12:15)
--- NOTE | 2025-01-04 17:18 | Cardiac Catheterization ---
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 Cardiac Status Clinical evaluation leading to the procedure CAD Presenation: Unstable angina Anginal Classification: CCS III Diagnostic Physicians Name: Christiano Self MD Closure Device Recommendations: PCI without planned CABG Cardiac Cath Procedure Full Procedure Date January 04, 2025 Pre-Procedure Diagnosis Pre-Procedure Diagnosis: Valvular Disease and Cardiothoracic Symptom (new/worse dyspnea on exertion) AUC Score AUC Score: 7 Post-Procedure Diagnosis Post-Procedure Diagnosis: Severe CAD and Successful PCI Procedure(s) Performed Procedure(s) Performed: Drug Eluting Stent and IVUS Ed Teacher Christiano Self MD Tube Wrapper(s) Mceknna/Jigar Estimated Blood Loss Estimated Blood Loss: < 20 ml Medication(s) Medication(s): Clopidogrel, Fentanyl, Heparin, Lidocaine 1%, Nicardipine and Versed Summary of Findings Indication: Exertional angina, moderate to severe Access: 6 Fr right radial artery Catheters: EBU 3.5 guide Findings: For full details of patient's coronary angiography please see cath report dictated by Dr. Hunt. Briefly, patient found to have severe ostial D1 disease along with moderate to severe mid LAD disease. Decision to proceed with IFR of LAD and possible PCI. --IFR/PCI -- Antithrombotic therapy: Heparin, clopidogrel Procedure: Left main cannulated with EBU 3.5 guide Pre-procedure flow PRAMOD 3 [place] Omniwire navigated into distal LAD iFR 0.75, 0.83, 0.82 Decision to proceed with PCI Omniwire removed and [place] blue wire navigated into distal LAD IVUS catheter placed to mid LAD. Unable to pass across mid LAD stenosis. Pullback revealed severe ostial diagonal disease with minimal calcium, minimal proximal LAD and left main disease. New Client Banking Services Clerk 50 wire placed into D1 Ostial/proximal D1 dilated with 2.5 balloon Mid LAD dilated with 2.5 balloon Diagonal stented with 2.5 x 18 mm [place] extending back into LAD Proximal aspect of stent in LAD crushed with 2.5 balloon Diagonal rewired through stent struts with harbor pilot 50 wire Kissing balloon inflation with 2.0 balloon in diagonal and 2.5 balloon in LAD Proximal to mid LAD stented with 3.0 x 22 mm Magnolia LANG Diagonal rewired through stent struts with whisper wire LAD stent postdilated with 3.5 NC to high atmospheres Kissing balloon inflation of LAD/diagonal bifurcation with 3.5 NC in LAD, 2.5 compliant balloon in diagonal Repeat IVUS of LAD showed well-expanded, well apposed stent with no apparent edge complications. IVUS of diagonal revealed well apposed stent with well-expanded stent struts covering diagonal ostium IC vasodilators administered for spasm Post procedure PRAMOD 3 flow, stent well expanded with minimal residual stenosis and no apparent cardiac complications. Arterial Closure: TR band Summary: 1. Successful PCI of mid LAD/diagonal bifurcation with 2 drug-eluting stents (3.0 x 22 mm Nader LAD, 2.5 x 18 mm Nader diagonal; DK crush technique). Recommendations: To PCU for continued monitoring Loaded with clopidogrel 600 mg in Wind Turbine Sheet Metal Worker Continue dual-antiplatelet therapy for at least 6 months Continue statin, and ASCVD risk factor modification If continued limiting exertional symptoms referral for TAVR evaluation. Hemodynamics Rest Ao:: 165/75/112 Final Ao: 169/59/98 LV: -- Recommendations Recommendations: PCI without planned CABG Specimens Specimens: None Radiation Exposure (mGy) 4691 Contrast (mls) 125 Anesthesia Moderate [id number] Procedural Complication(s) None Disposition PCU I attest to the content of the Intraoperative Record and any orders documented therein. Any exceptions are noted below. [facility] Card Cath Procedure Codes Therapeutic Services & Ancillary Procedure 1: Cardiovascular Tx and Anc Procedures: 98141 IV Ultrasound (Coronary or Graft) Procedure 2: Cardiovascular Tx and Anc Procedures: 51920 IV Ultrasound Ea addl vessel Moderate Sedation Procedure 1: Sedation/Anesthesia: 75840 Mod Sedation by the same physician; Ea [id number] Minutes Stenting Procedure 1: Cardiovascular Stent Procedures: 70282 Perc transcatheter placement of intracoronary stent(s), with ang PG Care Time/CCT Total # of Minutes Spent Total Time Spent with Patient: Total time spent is greater than 50% in coordination of care (as documented) at patient's floor/unit and/or counseling patient:
[2025-01-04] MEDS: ACETAMINOPHEN 325 MG TAB PO PRN (21:37)
[2025-01-04 23:56] VITALS: RESP 18
[2025-01-05 04:25] VITALS: TEMP 98.1
--- NOTE | 2025-01-05 06:43 | Electrocardiogram Report ---
Test Reason : Blood Pressure : */* mmHG Vent. Rate : 51 BPM Atrial Rate : 51 BPM P-R Int : 230 ms QRS Dur : 162 ms QT Int : 518 ms P-R-T Axes : 65 -21 132 degrees QTcB Int : 477 ms Sinus bradycardia with 1st degree A-V block with Premature supraventricular complexes Left bundle branch block Abnormal ECG When compared with ECG of 07-Apr-2024 20:05, T wave inversion less evident in Lateral leads Confirmed by Bony Hunt ([id number]) on 01/05/2025 6:42:56 AM Referred By: Mckenna Massey Confirmed By: Bony Hunt
[2025-01-05 07:37] VITALS: PULSE 60; O2SAT 96
[2025-01-05] MEDS: CLOPIDOGREL BISULFATE 75 MG TAB PO SCH (09:26)
[2025-01-05] MEDS: LOSARTAN POTASSIUM 50 MG TAB PO SCH (09:26)
[2025-01-05] MEDS: ASPIRIN 81 MG ECTAB PO SCH (09:26)
[2025-01-05] MEDS: ATORVASTATIN 20 MG TAB PO SCH (09:26)
[2025-01-05 09:39] VITALS: BP 159/71
== END 2025-01-05 10:07 | disposition home or self-care (01) ==
LOC: 2S 08:11 → CC 08:11
PROC: CLB.CCO (2025-01-04 09:30)